=== PATIENT | male | born 1960 | race Caucasian/White ===

== ENCOUNTER 2018-08-15 16:50 | Inpatient (IN) | payer MEDICAID ==
[~2018-08-15] VITALS: Ht 177.8 cm; Wt 77.1 kg
[2018-08-15 17:00] VITALS: BP 140/102
[2018-08-15 18:06] LABS: BASOPHILS % (AUTO) 0.3 % (0.0-2.0); EOSINOPHILS # (AUTO) 0.3 K/uL (0-0.4); EOSINOPHILS % (AUTO) 4.4 % (0.0-4.0); HEMATOCRIT 41.3 % (36-52); HEMOGLOBIN 13.6 g/dL (12.0-18.0); LYMPHOCYTES # (AUTO) 1.1 K/uL (2.0-11.5); LYMPHOCYTES % (AUTO) 15.7 % (20.5-51.1); MEAN CORPUSCULAR HEMOGLOBIN 31 pg (27-31); MEAN CORPUSCULAR HGB CONC 33 g/dL (33-37); MONOCYTES # (AUTO) 0.4 K/uL (0.8-1.0); NEUTROPHILS # (AUTO) 5.4 K/uL (1.8-7.7); NEUTROPHILS % (AUTO) 74.6 % (42.2-75.2); PLATELET COUNT (AUTO) 295 K/uL (140-450); RED BLOOD CELL COUNT(AUTO) 4.35 MIL/uL (4.20-6.10); RED CELL DISTRIBUTION WIDTH 14.3 % (11.6-13.7); WHITE BLOOD COUNT (AUTO) 7.2 K/uL (4.8-10.8)
[2018-08-15 18:29] LABS: ALBUMIN 3.6 g/dL (3.4-5.0); ANION GAP 10.2 (8-16); ASPARTATE AMINOTRANSFERASE 19 U/L (15-37); CHLORIDE 101 mmol/L (98-107); CREATININE 1.1 mg/dL (0.7-1.3); GFR ARICAN-AMERICAN 89 mL/min (>90); GLUCOSE 157 mg/dL (74-106); POTASSIUM 4.2 mmol/L (3.5-5.1); SODIUM SERUM 137 mmol/L (136-145); TOTAL BILIRUBIN 0.3 mg/dL (0.0-1.0); UREA NITROGEN, BLOOD 20 mg/dL (7-18)
[2018-08-15 18:33] LABS: ACETAMINOPHEN < 0.5 ug/ml (10-30); SALICYLATE < 2.8 mg/dL (2.8-20.0)
--- NOTE | 2018-08-15 19:10 | NUR ---
PT BIB PD FOR SI. PT STATES THAT HE PLANS TO COMMIT SUICIDE WITH HEROINE OD. PT HAS ATTEMPTED SI X2 BEFORE WITH HEROINE OD, AND JUMPING INTO TRAFFIC. PT ADMITS TO METHAMPETAMINE, ALCOHOL, AND CANIBUS USE THIS MORNING. DINA IS SITTING 1-1, PT BELONGINGS WITH SECURITY. WILL CONTNUE TO MONITOR.
[2018-08-15 19:25] LABS: BARBITURATE, URINE NEG. ng/ml (NEG <=200); BENZODIAZEPINE, URINE NEG. ng/mL (NEG <=200); CANNABINOID, URINE POS. ng/mL (NEG <=50); COCAINE, URINE NEG. ng/mL (NEG <=300); OPIATE, URINE NEG. ng/mL (NEG <=2000); PHENCYCLIDINE SCREEN,URINE NEG. ng/mL (NEG <=25)
[2018-08-15] MEDS ORDERED: ACETAMINOPHEN EXTRA STRENGTH 500 MG TAB PO ONE (20:00)
--- NOTE | 2018-08-15 21:16 | NUR ---
RECIEVED REPORT FROM ADEBAYO DAUGHERTY.
--- NOTE | 2018-08-15 21:16 | NUR ---
Pt report given to GEORGIANA DAUGHERTY. Transfer of care at this time.
--- NOTE | 2018-08-15 21:35 | NUR ---
Entered TelePsych order as requested by Dr. Rubi.
--- NOTE | 2018-08-15 22:15 | NUR ---
PT IS RESTING IN BED. NOTIFIED PT THAT WE HAVE AN ORDER FOR TELE PSYCH AND THAT HE WILL BE TALKING TO A PSYCHIATRIST THROUGH A COMPUTER MONITOR.
--- NOTE | 2018-08-15 22:52 | NUR ---
DR DARLING TELE PSYCHING WITH PT AT THIS TIME.
--- NOTE | 2018-08-15 22:58 | NUR ---
DR DARLING IS KEEPING PT ON 5150 HOLD. ZAK IS SITTING 1-1. PT IS RESTING AT THIS TIME, VSS. WILL CONTINUE TO MONITOR.
[2018-08-15] MEDS ORDERED: hydrOXYzine HCL 25 MG TAB PO PRN (23:25)
[2018-08-15] MEDS ORDERED: cloNIDine 0.1 MG TAB PO PRN (23:25)
--- NOTE | 2018-08-16 00:12 | NUR ---
Packet has been received, will begin calling for bed placement.
--- NOTE | 2018-08-16 00:56 | NUR ---
Called the following facilities contracted with patient insurance. At this time medi-angelina is down and facilities can not verify insurance. [facility], s/w Bobbi, no beds available, packet was faxed. [facility], s/w Grace, no beds available, not accepting packets at this time. [facility], s/w Sally, they are only contracted with patients with medi-angelina ages 18-20 only. [facility], s/w John, they only accept volunatary patients. [facility], s/w Yonny, they do not accept out of [place] [phone]'s. [facility], s/w Julia, they can not verify his medi-angelina and do not have any beds available. They can not accept packet until they can verify insurance. [facility], s/w Aurelia, no beds available. [facility], s/w Sahra, they only accept patients ages 60 and over. will continue to call other facilities through out shift.
[2018-08-16] MEDS ORDERED: GABAPENTIN 100 MG CAP ONE (02:27)
[2018-08-16] MEDS ORDERED: ACETAMINOPHEN 325 MG TAB PO PRN (02:35)
[2018-08-16] MEDS ORDERED: DOCUSATE SODIUM 100 MG GELCAP PO PRN (02:35)
[2018-08-16] MEDS ORDERED: ONDANSETRON 4 MG/2 ML VIAL IM/IVP PRN (02:35)
[2018-08-16] MEDS ORDERED: HYDROcodone/APAP 5/325 MG 1 TAB TAB PO PRN (02:35)
[2018-08-16] MEDS ORDERED: MORPHINE SULFATE 4 MG/ML SYR IVP PRN ×2 (02:50)
--- NOTE | 2018-08-16 02:50 | NUR ---
PT ON ER HOLD WAITING FOR RM 109B TO BE CLEANED.
--- NOTE | 2018-08-16 02:53 | NUR ---
X RAY AT BEDSIDE AT THIS TIME.
[2018-08-16] MEDS ORDERED: TRAZ-343 PO (03:24)
[2018-08-16] MEDS ORDERED: QUET400T PO ×2 (03:24)
[2018-08-16] MEDS ORDERED: MIRT30TA PO (03:24)
--- NOTE | 2018-08-16 03:35 | NUR ---
Patient will be admitted to care of DR HOWELL. Admited to MED/SURG VIA GURNEY WITH VSS. Will go to room 109B. Belongings list completed.
--- NOTE | 2018-08-16 03:40 | NUR ---
PT ARRIVED AT UNIT VIA GURNEY, PT AMBULATED TO BED, TOLERATED WELL, REPORT RECEIVED FROM ED NURSE, IV TO R HAND 22G, PATENT, INTACT, SL, PT ON ROOM AIR, NO SOB, PT BELONGING WITH SECURITY, SKIN INTACT, PT STATED HAVING LEG PAIN 6/10, WILL MEDICATE, INITIAL ASSESSMENT DONE, ALL SAFETY PRECAUTION MET, 1:1 SITTER AT BEDSIDE, WILL CONTINUE TO MONITOR.
--- NOTE | 2018-08-16 03:47 | NUR ---
PAIN MEDICATION PER MD ORDER ADMINISTERED, PT TOLERATED WELL, NO DISTRESS NOTED, 1:1 SITTER AT BEDSIDE,WILL CONTINUE TO MONITOR.
[2018-08-16 04:00] VITALS: BP 148/95
[2018-08-16 04:02] LABS: MAGNESIUM 2.1 mg/dL (1.8-2.4); PHOSPHORUS 3.8 mg/dL (2.5-4.9)
[2018-08-16 04:03] LABS: THYROID STIMULATING HORMONE 0.86 uIU/mL (0.34-3.74)
[2018-08-16] MEDS ORDERED: INFLUENZA VIRUS VACCINE QUAD 0.5 ML SYR IMVAC PRN (04:10)
--- NOTE | 2018-08-16 06:50 | NUR ---
CALLED DR. HERNANDEZ OFFICE AT [phone] REGARDING CONSULT ORDERED FOR PT, UNATTENDED GROUND SENSOR SPECIALIST STATED UNDERSTANDING AND STATED THAT THE ONCALL DR IS DR. GRIFFITH AND THAT CONSULTS STARTS AT 0700.
--- NOTE | 2018-08-16 07:29 | NUR ---
ENDORSED PT TO DAY SHIFT NURSE MATEO RN, PT STABLE, NO DISTRESS NOTED, CALL LIGHT WITHIN REACH.
--- NOTE | 2018-08-16 07:35 | NUR ---
RECEIVED BEDSIDE REPORT FROM RN CASE MANAGEMENT RN. PT IN STABLE CONDITION. SLEEPING IN BED, AROUSABLE BY VOICE. AOX4. STILL STATES HAVING SUICIDAL THOUGHTS AT THIS TIME. NO C/O PAIN OR DISCOMFORT. LUNGS CTA. HEART RHYTHM REGULAR. ABD NON-TENDER AND NON-DISTENDED. 1:1 SITTER AT BEDSIDE FOR SUIDICAL PRECAUTIONS. ALL OTHER SAFETY PRECAUTIONS IN PLACE, WILL CONTINUE TO MONITOR. Addendum: 08/16/18 at 0754 by Luz Oliver Meng, RN IV SITE ON RT HAND 22 HAND PATENT AND ASYMPTOMATIC, ON SL. Addendum: 08/16/18 at 0756 by Luz Oliver Meng, RN SKIN INTACT.
[2018-08-16 08:00] VITALS: BP 136/89
[2018-08-16 09:00] LABS: APPEARANCE,URINE CLEAR (CLEAR); BILIRUBIN,URINE NEGATIVE (NEGATIVE); BLOOD, URINE NEGATIVE (NEGATIVE); COLOR,URINE YELLOW (YELLOW); LEUKOCYTE ESTERASE ,URINE NEGATIVE (NEGATIVE); NITRITE, URINE NEGATIVE (NEGATIVE); UGLUCOSE NEGATIVE (NEGATIVE)
[2018-08-16] MEDS ORDERED: QUEtiapine FUMARATE 25 MG TAB PO SCH ×2 (09:00)
[2018-08-16] MEDS: QUEtiapine FUMARATE 100 MG TAB PO SCH ×2 (09:02→20:32)
[2018-08-16] MEDS: GABAPENTIN 100 MG CAP PO SCH ×3 (09:02→16:22)
--- NOTE | 2018-08-16 09:14 | NUR ---
ADMINISTERED SCHEDULED 0900 MEDICATIONS. NO C/O PAIN OR DISCOMFORT. ADJUSTED BED FOR COMFORT. PT WENT BACK TO SLEEP.
[2018-08-16 10:21] LABS: PROTHROMBIN TIME 9.9 secs (10.8-13.4)
--- NOTE | 2018-08-16 13:31 | NUR ---
PT SLEEPING IN BED, RESPIRATIONS EVEN AND UNLABORED. NO S/S DISTRESS. ALL SAFETY PRECAUTIONS IN PLACE, 1:1 SITTER AT BEDSIDE. WILL CONTINUE TO MONITOR.
--- NOTE | 2018-08-16 13:35 | NUR ---
PATIENT HAS BEEN SCREENED AND CATEGORIZED HIGH NUTRITION RISK. PATIENT WILL BE SEEN WITHIN 1-2 DAYS OF ADMISSION. 08/16/18 08/17/18 ANGIE BEVERLY MBA, RD
--- NOTE | 2018-08-16 15:44 | NUR ---
Called the following facilities for placement: [facility], s/w Bobbi, no beds [facility], s/w Roger, no beds [facility], s/w Susy, no beds [facility], s/w Ghada, no beds [facility], s/w David, asked to fax packet for review
--- NOTE | 2018-08-16 15:46 | NUR ---
PT SLEEPING IN BED. RESPIRATIONS EVEN AND UNLABORED WITH ADEQUATE CHEST RISE AND FALL. NO S/S DISTRESS. ALL SAFETY PRECAUTIONS IN PLACE, WILL CONTINUE TO MONITOR.
[2018-08-16 16:00] VITALS: BP 121/79
--- NOTE | 2018-08-16 17:26 | NUR ---
PT SLEEPING IN BED, NO S/S DISTRESS. RESPIRATIONS EVEN AND UNLABORED. ALL SAFETY PRECAUTIONS IN PLACE, WILL CONTINUE TO MONITOR.
--- NOTE | 2018-08-16 17:49 | NUR ---
08/16/18 RD INITIAL ASSESSMENT COMPLETED PLEASE REFER TO NUTRITION ASSESSMENT UNDER CARE ACTIVITY FOR ESTIMATED NUTRITIONAL NEEDS. RD RECOMMENDATIONS: 1. RECOMMEND CONTINUE REGULAR DIET 2. HONOR FOOD PREFERENCES AND ENCOURAGE PO INTAKE. 3. F/U 3-5 DAYS; MODERATE RISK ANGIE BEVERLY MBA, RD
--- NOTE | 2018-08-16 19:10 | NUR ---
ENDORSED POC TO AUTOMATIC GLOVE TURNER AND FORMER RN CNY AT BEDSIDE. PT IN STABLE CONDITION.
--- NOTE | 2018-08-16 19:15 | NUR ---
RECEIVED PT IN STABLE CONDITION FROM AM NURSE. MED SURG PT. ON / HOLD DUE TO SUICIDAL IDEATION. PT IS ASLEEP. WITH NO S/S OF ANY DISCOMFORT NOTED. HAS HL ON THE RT HAND G#22. CLEAR AND PATENT. BED ON LOW POSITION. WILL CLOSELY MONITOR PT .
[2018-08-16] MEDS: traZODone 50 MG TAB PO SCH (20:31)
[2018-08-16] MEDS: MIRTAZAPINE 15 MG TAB PO SCH (20:31)
--- NOTE | 2018-08-16 20:35 | NUR ---
TOOK ALL NIGHT MEDS. NO C/O ANY PAIN NOTED.
[2018-08-16] MEDS ORDERED: MIRTAZAPINE 15 MG TAB PO SCH ×3 (21:00)
--- NOTE | 2018-08-16 22:00 | NUR ---
UP TO THE BATHROOM AND VOIDED. BACK TO BED WITH NO C/O ANY DISCOMFORT NOR PAIN NOTED.
[2018-08-16 23:09] VITALS: BP 134/84
--- NOTE | 2018-08-17 00:30 | NUR ---
AWAKE,UP TO BATHROOM. VOIDED .
--- NOTE | 2018-08-17 01:00 | NUR ---
SLEEPING AT THIS TIME. WILL CONTINUE TO MONITOR.
--- NOTE | 2018-08-17 02:22 | NUR ---
Follow up calls were made to the contracted facilities. Currently no bed vacancies. [facility], s/w [facility], s/w Ramiro. [facility], s/w Sally. No, s/w Blair, they can not accept out of [place] [phone]. [facility], s/w Sahra. [facility], s/w Liliya.
--- NOTE | 2018-08-17 03:00 | NUR ---
SLEEPING WELL. NO S/S OF ANY DISCOMFORT NOTED.
--- NOTE | 2018-08-17 04:00 | NUR ---
ASLEEP. NO DISTRESS NOR ANY DISCOMFORT NOTED.
--- NOTE | 2018-08-17 05:30 | NUR ---
BLOOD WAS JUST DRAWN THIS AM. WILL FOLLOW UP RESULTS.
[2018-08-17 07:08] LABS: MEAN CORPUSCULAR VOLUME 96.1 fL (80-94); MONOCYTES # (AUTO) 0.4 K/uL (0.8-1.0); MONOCYTES % (AUTO) 6.3 % (1.7-9.3); WHITE BLOOD COUNT (AUTO) 5.9 K/uL (4.8-10.8)
--- NOTE | 2018-08-17 07:08 | NUR ---
ENDORSED PT IN STABLE CONDITION TO AM NURSE.
--- NOTE | 2018-08-17 07:12 | NUR ---
RECEIVED BEDSIDE REPORT FROM MARKETING FINANCIAL ANALYST RN. PT IN STABLE CONDITION. SLEEPING IN BED, AROUSABLE BY VOICE. AOX4. SKIN INTACT. AMBULATORY WITHOUT ASSIST. STILL STATES HAVING SUICIDAL THOUGHTS AT THIS TIME. NO C/O PAIN OR DISCOMFORT. LUNGS CTA. HEART RHYTHM REGULAR. ABD NON-TENDER AND NON-DISTENDED. 1:1 SITTER AT BEDSIDE FOR SUIDICAL PRECAUTIONS. ALL OTHER SAFETY PRECAUTIONS IN PLACE, WILL CONTINUE TO MONITOR.
[2018-08-17 07:31] LABS: BASOPHILS % (AUTO) 0.6 % (0.0-2.0); EOSINOPHILS # (AUTO) 0.4 K/uL (0-0.4); EOSINOPHILS % (AUTO) 6.4 % (0.0-4.0); HEMATOCRIT 46.9 % (36-52); HEMOGLOBIN 15.2 g/dL (12.0-18.0); LYMPHOCYTES # (AUTO) 1.2 K/uL (2.0-11.5); MEAN CORPUSCULAR HEMOGLOBIN 31 pg (27-31); MEAN CORPUSCULAR HGB CONC 32 g/dL (33-37); PLATELET COUNT (AUTO) 269 K/uL (140-450); RED BLOOD CELL COUNT(AUTO) 4.88 MIL/uL (4.20-6.10); RED CELL DISTRIBUTION WIDTH 14.6 % (11.6-13.7)
[2018-08-17 07:41] LABS: ANION GAP 10.8 (8-16); CARBON DIOXIDE 27.7 mmol/L (21-32); POTASSIUM 4.5 mmol/L (3.5-5.1)
[2018-08-17 08:00] VITALS: BP 132/84
[2018-08-17 08:18] LABS: MAGNESIUM 2.3 mg/dL (1.8-2.4); PHOSPHORUS 3.7 mg/dL (2.5-4.9)
[2018-08-17 08:19] LABS: CHOL/HDL RATIO 2.5 (1-4.5)
[2018-08-17 08:34] LABS: LYMPHOCYTES % (AUTO) 19.5 % (20.5-51.1); NEUTROPHILS % (AUTO) 67.2 % (42.2-75.2)
[2018-08-17] MEDS: GABAPENTIN 100 MG CAP PO SCH ×3 (09:49→17:32)
[2018-08-17] MEDS: QUEtiapine FUMARATE 100 MG TAB PO SCH ×2 (09:50→21:00)
--- NOTE | 2018-08-17 13:15 | NUR ---
PT SLEEPING IN BED, AROUSABLE BY VOICE. NO C/O PAIN OR DISCOMFORT AT THIS TIME. ADMINISTERED SCHEDULED MEDS PER MD ORDERS.
[2018-08-17 16:00] VITALS: BP 123/78
--- NOTE | 2018-08-17 16:02 | NUR ---
PT SLEEPING IN BED, AROUSABLE BY VOICE. DENIES PAIN AND DISCOMFORT. 1:1 SITTER AT BEDSIDE.
--- NOTE | 2018-08-17 19:15 | NUR ---
Follow up calls were made, no bed vacancies today at the following contracted facilities. [facility], s/w Morelia. [facility], s/w Tessy. [facility], s/w Tiffany. [facility], s/w Guido. [place], s/w Alex. [facility], s/w Octavio Iglesias.
--- NOTE | 2018-08-17 19:15 | NUR ---
ENDORSED POC TO NURSE RECRUITER RN. PT IN STABLE CONDITION.
--- NOTE | 2018-08-17 19:16 | NUR ---
RECEIVED PT IN STABLE CONDITION FROM AM NURSE. ASLEEP. BUT EASILY AROUSE WHEN NAME CALLED. PT WITH NO S/S OF ANY DISCOMFORT NOR PAIN NOTED. MED SURG AND ON / FOR SUICIDAL IDEATION. 1:1 SITTER IN ATTENDANCE. HL ON THE RT HAND 322. CLEAR AND PATENT. BED ON LOW POSITION. WILL CONTINUE TO MONITOR.
--- NOTE | 2018-08-17 19:24 | NUR ---
No bed vacancies also at the following contracted facilities. No, s/w Demetris. [facility], s/w Liliya Wagner [facility], s/w Aurelia, they are saturated.
--- NOTE | 2018-08-17 20:50 | NUR ---
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 DR. TAVARES MADE AWARE. WILL DO ORDERS.
[2018-08-17] MEDS: MIRTAZAPINE 15 MG TAB PO SCH (20:59)
[2018-08-17] MEDS: traZODone 50 MG TAB PO SCH (20:59)
[2018-08-17] MEDS ORDERED: CHLORHEXADINE GLUC 2% CLOTH TP SCH (21:30)
[2018-08-17] MEDS ORDERED: MUPIROCIN CA NASAL 2% 1GM TUBE NS SCH (21:30)
--- NOTE | 2018-08-17 21:30 | NUR ---
TREATMENTS FOR MRSA NARES + NOT STARTED TONIGHT , NOT AVAILABLE. DR. TAVARES RESIDENT MD MADE AWARE. OK TO START TOMORROW. BUTPT ALREADY ON CONTACT ISOLATION PROTOCOL.
--- NOTE | 2018-08-17 23:00 | NUR ---
ASLEEP. NO S/S FO ANY DISCOMFORT NOTED.
[2018-08-17 23:49] VITALS: BP 110/72
--- NOTE | 2018-08-18 00:30 | NUR ---
VITAL SIGNS STABLE. NO PAIN NOR ANY DISCOMFORT NOTED.
--- NOTE | 2018-08-18 02:00 | NUR ---
CONTINUE WITH 1;1 SITTER. PT NO S/S OF ANY SUICIDAL ATTEMPT NOTED. BUT STILL ON HOLD.
--- NOTE | 2018-08-18 04:00 | NUR ---
PT ASLEEP. NO S/S OF ANY DISTRESS NOTED.
--- NOTE | 2018-08-18 07:18 | NUR ---
ENDORSED PT IN STABLE CONDITION TO AM NURSE
--- NOTE | 2018-08-18 07:19 | NUR ---
RECEIVED REPORT FROM HEAD SETTER NURSE. PT IN STABLE CONDITION. RESPIRATIONS EVEN AND UNLABORED. IV INTACT AND PATENT. SAFETY MEASURES IN PLACE. CALL LIGHT AT BEDSIDE. BED IN LOW POSITION. WILL CONTINUE TO MONITOR.
[2018-08-18 08:00] VITALS: BP 105/72
--- NOTE | 2018-08-18 08:05 | NUR ---
MYA FROM [facility] CALLED TO SAY THEY ARE STILL REVIEWING BED PLACEMENT FOR PT.
[2018-08-18] MEDS: QUEtiapine FUMARATE 100 MG TAB PO SCH (08:39)
[2018-08-18] MEDS: GABAPENTIN 100 MG CAP PO SCH ×3 (08:41→17:02)
[2018-08-18] MEDS ORDERED: MUPIROCIN CA NASAL 2% 1GM TUBE NS SCH (09:00)
--- NOTE | 2018-08-18 09:00 | NUR ---
GAVE ORDERED MEDICATIONS AT THIS TIME. PT TOLERATED WELL. WILL CONTINUE TO MONITOR. SITTER AT BEDSIDE.
--- NOTE | 2018-08-18 14:01 | NUR ---
Called the following facilities of placement: [facility], s/w Lyric, pending d/c [facility], s/w Kathy, no beds [facility], s/w Clifford, no beds [facility], s/w Nadia, fax packet [facility], s/w Lorenza, fax packet [facility], s/w David, no beds
--- NOTE | 2018-08-18 15:30 | NUR ---
[facility] CALLED BED AVAILABLE AT [facility] IN [place] [phone]. [address], BED 121B ACCEPTING DOCTOR, DR. HYDE.
--- NOTE | 2018-08-18 15:32 | NUR ---
Rcv'd call from [facility] from [facility], patient was accepted to facility. Transfer information given to nurse De La Cruz. Patient going to 1 south, 121B, under the care of Dr. James.
[2018-08-18 16:00] VITALS: BP 100/72
[2018-08-18] MEDS ORDERED: QUET100T44 PO (16:07)
[2018-08-18] MEDS ORDERED: GABA-636 PO (16:15)
--- NOTE | 2018-08-18 17:10 | NUR ---
REPORT GIVEN TO MARIA EUGENIA Gonzalez [facility] . ALL QUESTIONS ANSWERED AT THIS TIME.
--- NOTE | 2018-08-18 18:20 | NUR ---
GAVE DISCHARGE INSTRUCTIONS AND MEDICATION PT VERBALIZED UNDERSTANDING OF INSTRUCTIONS. IV REMOVED, LUMEN INTACT. ID BAND REMOVED. REPORT GIVEN TO TRANSPORT TEAM AT THIS TIME. ALL QUESTIONS ANSWERED. PT PLACED ON [place] IN STABLE CONDITION.
[2018-08-18] MEDS ORDERED: QUEtiapine FUMARATE 100 MG TAB PO SCH (21:00)
--- NOTE | 2018-08-20 10:44 | NUR ---
Meat Cooler Note: I received a call from Gilbert arndt [facility] Ext [phone] requesting discharge disposition information. I told him patient was transfer to [facility] on 08/18/18.
== END 2018-08-18 18:20 | DRG 812 ==
LOC: MED 16:50 → MTU 08-16 02:33
PROVIDERS: ADMIT General Practice; ATTEND General Practice
DX: T50.901A Poisoning by unspecified drugs, medicaments and biological substances, accidental (unintentional), initial encounter (principal); G92 Toxic encephalopathy; K85.90 Acute pancreatitis without necrosis or infection, unspecified; R45.851 Suicidal ideations; F31.9 Bipolar disorder, unspecified; B19.20 Unspecified viral hepatitis C without hepatic coma; F10.20 Alcohol dependence, uncomplicated; F12.929 Cannabis use, unspecified with intoxication, unspecified; I10 Essential (primary) hypertension; Y90.0 Blood alcohol level of less than 20 mg/100 ml; F43.10 Post-traumatic stress disorder, unspecified; M54.31 Sciatica, right side; F17.210 Nicotine dependence, cigarettes, uncomplicated; F19.10 Other psychoactive substance abuse, uncomplicated; R73.9 Hyperglycemia, unspecified; F19.159 Other psychoactive substance abuse with psychoactive substance-induced psychotic disorder, unspecified; R73.03 Prediabetes; Y92.89 Other specified places as the place of occurrence of the external cause; Z91.19 Patient's noncompliance with other medical treatment and regimen; Z88.6 Allergy status to analgesic agent; Z79.899 Other long term (current) drug therapy
CPT/HCPCS: 36415; 71045; 80048; 80053; 80305; 81003; 83036; 83690; 83735; 83880; 84100; 84443; 84484; 85025; 85610; 85730; 87081; 93005; 99285; C1758; G0480; G0482